=== PATIENT | male | born 1985 | race Caucasian/White ===

== ENCOUNTER 2020-10-03 16:46 | Emergency (ER) | payer OTHER ==
[~2020-10-03] VITALS: Ht 172.7 cm; Wt 74.8 kg
[2020-10-03 17:17] VITALS: Ht 172.7 cm; Wt 74.8 kg
[2020-10-03] MEDS ORDERED: IBU600 M2 PO (18:48)
[2020-10-03] MEDS ORDERED: BACTRIM DS1 TAB PO (18:48)
[2020-10-03 19:24] VITALS: BP 127/86
== END 2020-10-03 19:24 | disposition home or self-care (01) ==
LOC: ED 16:46
DX: S61.412A Laceration without foreign body of left hand, initial encounter (principal); Z88.0 Allergy status to penicillin; X58.XXXA Exposure to other specified factors, initial encounter; Y93.89 Activity, other specified; Y92.89 Other specified places as the place of occurrence of the external cause; Y99.8 Other external cause status
CPT/HCPCS: 90715; J1885; J2001